=== PATIENT | male | born 1990 | race Caucasian/White ===

== ENCOUNTER 2016-11-02 17:46 | Emergency (ER) | payer OTHER ==
[~2016-11-02] VITALS: Ht 182.9 cm; Wt 95.3 kg
[2016-11-02 17:50] VITALS: TEMP 36.7; Ht 182.9 cm; Wt 95.3 kg
[2016-11-02] MEDS ORDERED: OXYC-57 PO (18:22)
[2016-11-02] MEDS ORDERED: ZFRODT/8 PO (18:22)
[2016-11-02] MEDS ORDERED: [UNRECOGNIZED DRUG - OTHER] PO (18:24)
--- NOTE | 2016-11-02 18:45 | DIAGNOSTIC IMAGING REPORT ---
RIGHT SHOULDER MIN 2 VIEWS ROUTINE CLINICAL HISTORY: fall Right trauma. Pain. COMPARISON: None. DISCUSSION: The bones and joint spaces appear intact. There is no evidence of fracture, dislocation or bony disease. There is no evidence for soft tissue swelling. IMPRESSION: Negative study. Electronically signed by: Hay Harvey M.D. 11/02/2016 6:44 PM Dictated Date/Time: 11/02/2016 6:43 PM
[2016-11-02 18:51] VITALS: BP 142/88; PULSE 60; O2SAT 98
[2016-11-02] MEDS ORDERED: IBUP-103 PO (18:57)
--- NOTE | 2016-11-02 20:16 | EMERGENCY ROOM VISIT NOTE ---
History Report prepared by Humberto: Antonella Neri Under the Supervision of: Dr. Dawit Salvador M.D. First contact with patient: 18:04 Chief Complaint: SHOULDER PAIN Stated Complaint: R SHOULDER PAIN History of Present Illness The patient is a 26 year old male who presents to the Emergency Room with complaints of constant right shoulder pain beginning today. The pain is rated at a 6/10. Prior to arrival, the patient reports that he tripped, fell, and caught himself on stairs. The patient tore his biceps tendon and had a slap tear shoulder surgery on September 18. He states that the doctor did not know that the tendon was torn until the patient was in surgery. The patient was placed in a sling for 6 weeks. He denies any other injuries. He has no head or neck pain. He has some tension to his trapezius muscle but attributes this to having his arm in a sling for so long. He was concerned that he may have torn his biceps tendon. Source of History: patient Onset: today Position: shoulder (right) Symptom Intensity: rated at a 6/10 Timing: constant Associated Symptoms: + back pain Review of Systems See HPI for pertinent positives & negatives. A total of 6 systems reviewed and were otherwise negative. Past Medical & Surgical Surgical Problems: (1) History of shoulder surgery Family History No pertinent family history stated. Social History Smoking Status: Never Smoker Marital Status: single Occupation Status: employed Current/Historical Medications Scheduled Ibuprofen Tab (Advil), 400-600 MG PO prn Scheduled PRN Ondansetron (Ondansetron Odt), 1 TAB PO Q8 PRN for Nausea Oxycodone/Acetaminophen 5MG/325MG (Percocet 5MG/325MG), 1-2 TABLETS PO Q4H PRN for Pain [Bca], 1 TAB PO DAILY PRN for Allergies Coded Allergies: No Known Allergies (Unverified , 05/25/14) Physical Exam Vital Signs Date Time Temp Pulse Resp B/P (MAP) Pulse Ox O2 Delivery O2 Flow Rate FiO2 11/02/16 18:51 60 16 142/88 98 11/02/16 17:50 36.7 65 20 157/90 99 Room Air Physical Exam Constitutional: Vital signs reviewed. Respiratory: Clear to auscultation bilaterally. Breath sounds are equal bilaterally. Cardiovascular: Regular rate and rhythm. No rubs or gallops. Musculoskeletal: No bony tenderness to the right shoulder. Normal distal pulses. No deformity or loss of contour of the biceps muscle. Integumentary: No cyanosis. Neurological: The patient is awake and alert. No focal deficits. Motor and sensation are intact throughout the right upper extremity. Psychiatric: Normal affect. Medical Decision & Procedures ER Provider Diagnostic Interpretation: X-ray results as stated below per interpretation by me and the radiologist: RIGHT SHOULDER MIN 2 VIEWS ROUTINE CLINICAL HISTORY: fall Right trauma. Pain. COMPARISON: None. DISCUSSION: The bones and joint spaces appear intact. There is no evidence of fracture, dislocation or bony disease. There is no evidence for soft tissue swelling. IMPRESSION: Negative study. Electronically signed by: Hay Harvey M.D. 11/02/2016 6:44 PM Dictated Date/Time: 11/02/2016 6:43 PM ED Course 1806: The patient was evaluated in room D9. A complete history and physical exam was performed. 1844: I discussed the patient's Xray results with him. He will follow up with orthopedics. 1846: Upon reevaluation, the patient appeared to have improvement of his symptoms. I discussed tonight's findings with him. He verbalized agreement of the treatment plan. He was discharged home. Medical Decision This is a 26-year-old male who presents with right shoulder pain. I did perform a limited focused review of portions of the patient's old chart on the electronic medical record. The patient has had no recent pertinent visits to this hospital. Blood Pressure Screening: Patient was found to have an elevated blood pressure and was referred to their primary doctor for recheck and further treatment. Medication Reconciliation: I attest that I have personally reviewed the patient' s current medication list. I did evaluate the patient as noted above. I did order and personally review the patient's right shoulder x-rays as described above. There is no evidence of acute abnormality. I did discuss the test results with the patient. I did recommend that he follow closely with [facility] for further evaluation of his symptoms. He was advised to remain in his sling until follow up. Impression Primary Impression: Right shoulder injury Scribe Attestation The scribe's documentation has been prepared under my direct and personally reviewed by me in its entirety. I confirm that the note above accurately reflects all work, treatment, procedures, and medical decision making performed by me. Departure Information Dispostion Home / Self-Care Referrals No Doctor, Assigned (PCP) Forms HOME CARE DOCUMENTATION FORM, IMPORTANT VISIT INFORMATION Patient Instructions My [facility] Additional Instructions You have been examined and treated today on an emergency basis only. This is not a substitute for, or an effort to provide, complete comprehensive medical care. It is impossible to recognize and treat all injuries or illnesses in a single emergency department visit. It is therefore important that you follow up closely with [facility]. Call as soon as possible for an appointment. Return for worsening symptoms or if you develop numbness or weakness in your fingers or any other concerning symptoms. Keep your sling on until follow up with orthopedics. Problem Qualifiers Primary Impression: Right shoulder injury Encounter type: initial encounter Qualified Codes: S49.91XA - Unspecified injury of right shoulder and upper arm, initial encounter
== END 2016-11-02 18:52 | disposition home or self-care (01) ==
LOC: C.EDB 17:47 → C.EDD 18:52
DX: S49.91XA Unspecified injury of right shoulder and upper arm, initial encounter (principal); W10.9XXA Fall (on) (from) unspecified stairs and steps, initial encounter; Z98.890 Other specified postprocedural states